=== PATIENT | female | born 1985 | race Two or more races ===

== ENCOUNTER 2018-06-12 16:00 | Inpatient (IN) | payer MEDICAID ==
[~2018-06-12] VITALS: Ht 157.5 cm; Wt 81.6 kg
[2018-06-12] MEDS ORDERED: LACT. RINGERS/OXYTOCIN 20UNITS 1,000 ML IV ONE (16:12)
[2018-06-12] MEDS ORDERED: LIDOCAINE 2% (LOCAL ANESTH.) PF 5ml SDV ONE (16:12)
[2018-06-12] MEDS ORDERED: PHISODERM TOP SOLN 240ML BTL TOP ONE (16:25)
[2018-06-12] MEDS ORDERED: DERMOPLAST 60ML BOTTLE TOP ONE (16:25)
[2018-06-12] MEDS ORDERED: WITCH HAZEL-GLYCERIN PAD TOP ONE (16:25)
[2018-06-12] MEDS ORDERED: IBUPROFEN 600 MG TAB PO PRN (16:45)
[2018-06-12] MEDS ORDERED: DOCUSATE CALCIUM 240 MG CAP PO SCH (16:50)
[2018-06-12 18:19] LABS: Basophils # (auto) 0 uL; Basophils % (auto) 0.2 % (0.0-2.0); Eosinophils # (auto) 0 uL; Eosinophils % (auto) 0.1 % (0.0-7.0); Hematocrit 33.7 % (36.0-46.0); Hemoglobin 11.5 g/dL (12.2-16.2); Lymphocytes # (auto) 1.1 uL; Lymphocytes % (auto) 11.2 % (10.0-50.0); Mean Corpuscular Hemoglobin 30.8 pg (28.0-32.0); Mean Corpuscular Volume 90.4 fL (80.0-100.0); Monocytes # (auto) 0.4 uL; Monocytes % (auto) 4.3 % (0.0-12.0); Neutrophils % (auto) 84.2 % (37.0-80.0); Platelet Count (auto) 198 10^3/uL (140-450); Red Blood Cells 3.72 10^6/uL (4.0-5.20); Red Cell Distribution Width 14.8 % (11.8-14.3); White Blood Cell 9.5 10^3/uL (4.4-10.8)
[2018-06-12 19:00] VITALS: BP 142/72
[2018-06-12 23:00] VITALS: BP 126/76
[2018-06-13] VITALS (7 sets, daily range): BP systolic 115–132; BP diastolic 58–80
[2018-06-13 06:09] LABS: RPR Non Reactive (Non Reactive)
[2018-06-13] MEDS ORDERED: PREN-145 OR (08:56)
[2018-06-13] MEDS ORDERED: TETANUS-DIPTH-ACEL PERTUSSIS 0.5ML SYRG IM ONE (19:30)
[2018-06-13] MEDS ORDERED: MEASLES, MUMPS & RUBELLA VAC(MMRII) 0.5ML SC ONE ×2 (19:30→19:36)
== END 2018-06-13 20:34 | disposition home or self-care (01) | DRG 560 ==
LOC: LDRP 16:00
PROVIDERS: ADMIT Obstetrics & Gynecology; ATTEND Obstetrics & Gynecology
PROC: 10E0XZZ Delivery of Products of Conception, External Approach (ICD-10-PCS; principal; 2018-06-12)
DX: O69.1XX0 Labor and delivery complicated by cord around neck, with compression, not applicable or unspecified (principal); Z37.0 Single live birth; Z3A.38 38 weeks gestation of pregnancy
CPT/HCPCS: 36415; 59025; 59409; 85025; 86592; 86850; 86900; 86901; 90715; 96361; 96365; 96366; 96372; J2001; J2590